=== PATIENT | female | born 1995 | race African-American/Black ===

== ENCOUNTER 2023-04-20 10:48 | Inpatient (IN) | payer MEDICARE ==
[~2023-04-20] VITALS: Ht 157.5 cm; Wt 62.0 kg
[2023-04-20] MEDS ORDERED: SODIUM CHLORIDE 0.9% 1,000 ML IV ONE (11:00)
[2023-04-20 11:28] LABS: COVID AG,FIA SOURCE NASAL SWAB
[2023-04-20 11:34] LABS: BASOPHILS % (AUTO) 0.3 % (0.0-2.0); EOSINOPHILS % (AUTO) 0 % (1.0-6.0); HEMATOCRIT 41.1 % (36-46); HEMOGLOBIN 13.7 g/dL (12.0-16.0); LYMPHOCYTES % (AUTO) 7.2 % (22.0-44.0); MEAN CORPUSCULAR HEMOGLOBIN 32.5 pg (26.0-34.0); MEAN CORPUSCULAR HGB CONC 33.4 G/dL (31.0-37.0); MEAN CORPUSCULAR VOLUME 97 fL (80-100); MONOCYTES # (AUTO) 0.2 K/uL (0.1-1.0); MONOCYTES % (AUTO) 1.4 % (2.0-9.0); NEUTROPHILS # (AUTO) 12.7 K/uL (1.8-7.7); PLATELET COUNT (AUTO) 351 K/uL (150-450); RED BLOOD CELL COUNT(AUTO) 4.22 MIL/uL (4.00-5.20); RED CELL DISTRIBUTION WIDTH 13.3 % (11.5-14.5); WHITE BLOOD COUNT (AUTO) 13.9 K/uL (4.5-11.0)
[2023-04-20 11:36] LABS: NEUTROPHILS % (AUTO) 91.1 % (40.0-70.0)
[2023-04-20 11:57] LABS: ALANINE AMINOTRANSFERASE 43 U/L (12-78); ALKALINE PHOSPHATASE 133 U/L (46-116); ANION GAP 27 mmol/L (8-16); ASPARTATE AMINOTRANSFERASE 45 U/L (15-37); BILIRUBIN,TOTAL 1.9 mg/dL (0.1-1.0); CALCIUM, TOTAL 10.6 mg/dL (8.8-10.5); CARBON DIOXIDE 14 mmol/L (22-29); CHLORIDE 99 mmol/L (98-107); CREATININE 1.27 mg/dL (0.60-1.30); GLOMERULAR FILTR. RATE CALC > 60 mL/min (>60); HCG,QUANTITATIVE < 1 mIU/mL (0-6); POTASSIUM 5.3 mmol/L (3.5-5.1); SODIUM SERUM 140 mmol/L (136-145); TOTAL PROTEIN, SERUM 8.6 g/dL (6.4-8.2); UREA NITROGEN, BLOOD 26 mg/dL (7-18)
[2023-04-20 12:01] LABS: SARS-COV2 (COVID) ANTIGEN,FIA Negative (Negative)
[2023-04-20 12:04] LABS: GLUCOSE,RANDOM 695 mg/dL (70-110)
[2023-04-20] MEDS ORDERED: ACETAMINOPHEN 1000 MG/ISO-OSM 100 ML IV ONE (12:15)
[2023-04-20] MEDS ORDERED: INSULIN REGULAR, HUMAN 100 UNITS/ML IVP PRN ×2 (12:15→14:15)
[2023-04-20] MEDS ORDERED: POTASSIUM CHLORIDE 40 MEQ in SODIUM CHLORIDE 0.45% 1,000 ML IV PRN ×2 (12:15→14:15)
[2023-04-20] MEDS ORDERED: DEXTROSE 50%-WATER 25 GM/50 ML SYRINGE IVP PRN ×2 (12:15→14:15)
[2023-04-20] MEDS ORDERED: DEXTROSE 5%-0.45% SODIUM CHL 1,000 ML IV PRN (12:15)
[2023-04-20] MEDS ORDERED: SODIUM CHLORIDE 0.45% 1,000 ML IV PRN ×2 (12:15→14:15)
[2023-04-20] MEDS ORDERED: INSULIN REGULAR, HUMAN 100 UNITS/ML IVP ONE ×2 (12:15→14:15)
[2023-04-20] MEDS ORDERED: POTASSIUM CHL 20 MEQ/0.45% NS 1,000 ML IV PRN ×2 (12:15→14:15)
[2023-04-20] MEDS ORDERED: SODIUM CHLORIDE 0.9% 1,000 ML IV SCH ×2 (12:15→14:15)
[2023-04-20] MEDS ORDERED: INSULIN REGULAR, HUMAN 100 UNITS in SODIUM CHLORIDE 0.9% 99 ML IV PRN ×4 (12:15→14:15)
[2023-04-20] MEDS ORDERED: ACETAMINOPHEN 325 MG TABLET PO PRN ×2 (12:30→14:15)
[2023-04-20] MEDS ORDERED: ONDANSETRON HCL 4 MG/2 ML VIAL IVP PRN (12:30)
[2023-04-20 13:12] LABS: APPEARANCE,URINE CLEAR (CLEAR); BILIRUBIN,URINE NEGATIVE (NEGATIVE); COLOR,URINE COLORLESS (YELLOW); GLUCOSE, URINE (UA) >=1000 mg/dL (NEGATIVE); KETONES,URINE =>150 mg/dL (NEGATIVE); LEUKOCYTE ESTERASE ,URINE NEGATIVE (NEGATIVE); NITRATE,URINE NEGATIVE (NEGATIVE); OCCULT BLOOD,URINE NEGATIVE (NEGATIVE); PH,URINE 5.5 (5.0-8.0); PROTEIN,URINE TRACE mg/dL (NEGATIVE); SPECIFIC GRAVITIY, URINE 1.028 (1.003-1.030); UROBILINOGEN,URINE <=1.0 mg/dL (<=1.0)
[2023-04-20 13:28] LABS: BACTERIA,URINE None Seen /HPF (None Seen); RBC,URINE None Seen /HPF (0-2); SQUAMOUS EPITHELIAL CELL,UR Rare /LPF (None Seen); WBC,URINE 0-2 /HPF (0-5)
[2023-04-20] MEDS ORDERED: MAGNESIUM HYDROXIDE SUSPENSION 30 ML UDCUP PO PRN (14:15)
[2023-04-20] MEDS ORDERED: BISACODYL 10 MG RECTAL RECTAL SUPPOSITORY PR PRN (14:15)
[2023-04-20] MEDS ORDERED: ZOLPIDEM TARTRATE 5 MG TABLET PO PRN (14:15)
[2023-04-20] MEDS: MORPHINE SULFATE 2 MG/ML SYRINGE IVP PRN ×2 (14:28→19:41)
[2023-04-20 15:15] LABS: GLUCOMETER DEV NAME(LOC) ERT.5; GLUCOSE,POINT OF CARE 410 MG/DL (70-110)
[2023-04-20 15:15] LABS: GLUCOMETER DEV NAME(LOC) ERT.5; GLUCOSE,POINT OF CARE 547 MG/DL (70-110)
[2023-04-20 15:41] LABS: CALCIUM, TOTAL 9.3 mg/dL (8.8-10.5); CREATININE 1.48 mg/dL (0.60-1.30); POTASSIUM 4.3 mmol/L (3.5-5.1)
[2023-04-20] MEDS: HEPARIN SODIUM,PORCINE 5,000 UNITS/ML VIAL SQ SCH (15:50)
[2023-04-20 16:11] LABS: GLUCOMETER DEV NAME(LOC) ERT.5; GLUCOSE,POINT OF CARE 279 MG/DL (70-110)
[2023-04-20] MEDS: DEXTROSE 5%-0.45% SODIUM CHL 1,000 ML IV PRN (17:09)
[2023-04-20] MEDS: HYDROCODONE/ACETAMINOPHEN 5-325 MG TABLET PO PRN (17:14)
[2023-04-20] MEDS: ONDANSETRON HCL 4 MG/2 ML VIAL IVP PRN (17:14)
[2023-04-20 17:21] LABS: GLUCOMETER DEV NAME(LOC) ERT.5; GLUCOSE,POINT OF CARE 213 MG/DL (70-110)
[2023-04-20 19:01] LABS: GLUCOMETER DEV NAME(LOC) ERT.5; GLUCOSE,POINT OF CARE 163 MG/DL (70-110)
[2023-04-20 19:01] LABS: GLUCOMETER DEV NAME(LOC) ERT.5; GLUCOSE,POINT OF CARE 138 MG/DL (70-110)
[2023-04-20 19:25] LABS: ANION GAP 17 mmol/L (8-16); CALCIUM, TOTAL 9.6 mg/dL (8.8-10.5); CARBON DIOXIDE 20 mmol/L (22-29); CHLORIDE 112 mmol/L (98-107); CREATININE 1.27 mg/dL (0.60-1.30); GLOMERULAR FILTR. RATE CALC > 60 mL/min (>60); GLUCOSE,RANDOM 178 mg/dL (70-110); SODIUM SERUM 149 mmol/L (136-145); UREA NITROGEN, BLOOD 22 mg/dL (7-18)
[2023-04-20 20:00] VITALS: BP 139/78; PULSE 133; RESP 16; TEMP 98.6
[2023-04-20 20:21] LABS: GLUCOSE,POINT OF CARE 87 MG/DL (70-110)
[2023-04-20] MEDS ORDERED: MORPHINE SULFATE 2 MG/ML SYRINGE IVP STA (20:31)
[2023-04-20] MEDS: DOCUSATE SODIUM 100 MG CAPSULE PO SCH (21:00)
[2023-04-20 21:41] LABS: GLUCOSE,POINT OF CARE 60 MG/DL (70-110)
[2023-04-20 22:25] LABS: GLUCOSE,POINT OF CARE 143 MG/DL (70-110)
[2023-04-20 23:26] LABS: GLUCOSE,POINT OF CARE 203 MG/DL (70-110)
[2023-04-20 23:44] LABS: ANION GAP 12 mmol/L (8-16); CALCIUM, TOTAL 8.7 mg/dL (8.8-10.5); CARBON DIOXIDE 22 mmol/L (22-29); CHLORIDE 112 mmol/L (98-107); CREATININE 0.95 mg/dL (0.60-1.30); GLOMERULAR FILTR. RATE CALC > 60 mL/min (>60); GLUCOSE,RANDOM 225 mg/dL (70-110); POTASSIUM 4.7 mmol/L (3.5-5.1); SODIUM SERUM 146 mmol/L (136-145); UREA NITROGEN, BLOOD 19 mg/dL (7-18)
[2023-04-21] VITALS (9 sets, daily range): BP systolic 98–145; BP diastolic 59–95; PULSE 82–133; RESP 16–22; TEMP 98.1–99.6
[2023-04-21 01:11] LABS: GLUCOSE,POINT OF CARE 198 MG/DL (70-110)
[2023-04-21] MEDS: HEPARIN SODIUM,PORCINE 5,000 UNITS/ML VIAL SQ SCH ×4 (01:18→23:43)
[2023-04-21 03:21] LABS: GLUCOSE,POINT OF CARE 72 MG/DL (70-110)
[2023-04-21 03:21] LABS: GLUCOSE,POINT OF CARE 97 MG/DL (70-110)
[2023-04-21 03:31] LABS: ANION GAP 12 mmol/L (8-16); CALCIUM, TOTAL 8.7 mg/dL (8.8-10.5); CARBON DIOXIDE 21 mmol/L (22-29); CHLORIDE 113 mmol/L (98-107); CREATININE 0.81 mg/dL (0.60-1.30); GLOMERULAR FILTR. RATE CALC > 60 mL/min (>60); GLUCOSE,RANDOM 71 mg/dL (70-110); POTASSIUM 3.9 mmol/L (3.5-5.1); SODIUM SERUM 146 mmol/L (136-145); UREA NITROGEN, BLOOD 17 mg/dL (7-18)
[2023-04-21 03:56] LABS: GLUCOSE,POINT OF CARE 72 MG/DL (70-110)
[2023-04-21] MEDS: DEXTROSE 5%-0.45% SODIUM CHL 1,000 ML IV PRN (04:31)
[2023-04-21 05:25] LABS: GLUCOSE,POINT OF CARE 107 MG/DL (70-110)
[2023-04-21 05:25] LABS: GLUCOSE,POINT OF CARE 127 MG/DL (70-110)
[2023-04-21 05:41] LABS: GLUCOSE,POINT OF CARE 136 MG/DL (70-110)
[2023-04-21] MEDS: MORPHINE SULFATE 2 MG/ML SYRINGE IVP PRN ×5 (05:59→23:43)
[2023-04-21 06:16] LABS: GLUCOSE,POINT OF CARE 77 MG/DL (70-110)
[2023-04-21 06:28] LABS: HEMATOCRIT 32.5 % (36-46); HEMOGLOBIN 11.2 g/dL (12.0-16.0); MEAN CORPUSCULAR HEMOGLOBIN 32.6 pg (26.0-34.0); MEAN CORPUSCULAR HGB CONC 34.4 G/dL (31.0-37.0); MEAN CORPUSCULAR VOLUME 95 fL (80-100); PLATELET COUNT (AUTO) 315 K/uL (150-450); RED BLOOD CELL COUNT(AUTO) 3.44 MIL/uL (4.00-5.20); RED CELL DISTRIBUTION WIDTH 13.4 % (11.5-14.5); WHITE BLOOD COUNT (AUTO) 17.8 K/uL (4.5-11.0)
[2023-04-21 06:56] LABS: ALANINE AMINOTRANSFERASE 29 U/L (12-78); ALBUMIN 2.8 g/dL (3.4-5.0); ALKALINE PHOSPHATASE 100 U/L (46-116); ANION GAP 13 mmol/L (8-16); ASPARTATE AMINOTRANSFERASE 17 U/L (15-37); BILIRUBIN,TOTAL 0.9 mg/dL (0.1-1.0); CALCIUM, TOTAL 8.4 mg/dL (8.8-10.5); CARBON DIOXIDE 19 mmol/L (22-29); CHLORIDE 113 mmol/L (98-107); CREATININE 0.79 mg/dL (0.60-1.30); GLOMERULAR FILTR. RATE CALC > 60 mL/min (>60); GLUCOSE,RANDOM 91 mg/dL (70-110); PHOSPHORUS 1.9 mg/dL (2.5-4.9); POTASSIUM 3.3 mmol/L (3.5-5.1); SODIUM SERUM 145 mmol/L (136-145); TOTAL PROTEIN, SERUM 6.4 g/dL (6.4-8.2); UREA NITROGEN, BLOOD 15 mg/dL (7-18)
[2023-04-21 07:15] LABS: GLUCOSE,POINT OF CARE 125 MG/DL (70-110)
[2023-04-21] MEDS: DOCUSATE SODIUM 100 MG CAPSULE PO SCH ×3 (08:11→21:25)
[2023-04-21] MEDS ORDERED: POTASSIUM CHLORIDE 20 MEQ ER TABLET PO PRN ×2 (08:30)
[2023-04-21] MEDS ORDERED: DEXTROSE 50%-WATER 25 GM/50 ML SYRINGE IVP PRN (08:30)
[2023-04-21] MEDS ORDERED: POTASSIUM CHL 10 MEQ/WATER 50 ML IV PRN (08:30)
[2023-04-21] MEDS: ONDANSETRON HCL 4 MG/2 ML VIAL IVP PRN ×3 (08:38→22:07)
[2023-04-21 08:39] LABS: BAND NEUTROPHILS % (MANUAL) 2 % (0-5); LYMPHOCYTES % (MANUAL) 19 % (22-44); MONOCYTES % (MANUAL) 5 % (2-9); SEGMENTED NEUTROPHILS % 74 % (40-70); TOTAL CELLS COUNTED 100
[2023-04-21] MEDS: SODIUM CHLORIDE 0.9% 1,000 ML IV SCH ×2 (08:39→20:11)
[2023-04-21] MEDS: PANTOPRAZOLE SODIUM 40 MG DR TABLET PO SCH (08:39)
[2023-04-21 08:40] LABS: RBC MORPHOLOGY COMMENT NORMAL RBC MORPH
[2023-04-21] MEDS: POTASSIUM CHL 10 MEQ/WATER 50 ML IV PRN (08:40)
[2023-04-21] MEDS ORDERED: INSULIN GLARGINE,HUM.REC.ANLOG 100 UNITS/ML SQ SCH (09:00)
[2023-04-21] MEDS: INSULIN LISPRO 100 UNITS/ML SQ PRN ×2 (09:15→17:29)
[2023-04-21] MEDS: METOCLOPRAMIDE HCL 5 MG/ML 2 ML VIAL IVP PRN ×2 (09:16→17:28)
[2023-04-21 09:46] LABS: ANION GAP 16 mmol/L (8-16); CALCIUM, TOTAL 8.9 mg/dL (8.8-10.5); CARBON DIOXIDE 17 mmol/L (22-29); CHLORIDE 109 mmol/L (98-107); CREATININE 0.84 mg/dL (0.60-1.30); GLOMERULAR FILTR. RATE CALC > 60 mL/min (>60); GLUCOSE,RANDOM 303 mg/dL (70-110); POTASSIUM 4.5 mmol/L (3.5-5.1); SODIUM SERUM 142 mmol/L (136-145); UREA NITROGEN, BLOOD 13 mg/dL (7-18)
[2023-04-21 11:41] LABS: GLUCOSE,POINT OF CARE 276 MG/DL (70-110)
[2023-04-21] MEDS ORDERED: PROMETHAZINE HCL 12.5 MG RECTAL SUPPOSITORY PR PRN (13:00)
[2023-04-21 13:32] LABS: GLUCOSE,POINT OF CARE 101 MG/DL (70-110)
[2023-04-21 15:41] LABS: GLUCOSE,POINT OF CARE 167 MG/DL (70-110)
[2023-04-21] MEDS: AMITRIPTYLINE HCL 50 MG TABLET PO SCH (21:00)
[2023-04-21] MEDS: PREGABALIN 75 MG CAPSULE PO SCH ×2 (21:00→21:25)
[2023-04-21] MEDS: INSULIN GLARGINE,HUM.REC.ANLOG 100 UNITS/ML SQ SCH (21:30)
[2023-04-22] VITALS (14 sets, daily range): BP systolic 121–153; BP diastolic 76–111; PULSE 100–150; RESP 20; TEMP 97.8–99.3
[2023-04-22 01:16] LABS: GLUCOMETER DEV NAME(LOC) 4E.2; GLUCOSE,POINT OF CARE 132 MG/DL (70-110)
[2023-04-22] MEDS: METOCLOPRAMIDE HCL 5 MG/ML 2 ML VIAL IVP PRN (03:39)
[2023-04-22] MEDS: MORPHINE SULFATE 2 MG/ML SYRINGE IVP PRN ×4 (03:39→23:20)
[2023-04-22] MEDS: INSULIN LISPRO 100 UNITS/ML SQ PRN (03:47)
[2023-04-22] MEDS ORDERED: MORPHINE SULFATE 2 MG/ML SYRINGE IVP ONE ×2 (04:00→19:45)
[2023-04-22 05:01] LABS: GLUCOMETER DEV NAME(LOC) 6N.2B; GLUCOSE,POINT OF CARE 330 MG/DL (70-110)
[2023-04-22] MEDS: SODIUM CHLORIDE 0.9% 1,000 ML IV SCH ×3 (05:37→21:05)
[2023-04-22] MEDS: HEPARIN SODIUM,PORCINE 5,000 UNITS/ML VIAL SQ SCH ×2 (08:26→16:29)
[2023-04-22 08:36] LABS: GLUCOMETER DEV NAME(LOC) 5N.1C; GLUCOSE,POINT OF CARE 106 MG/DL (70-110)
[2023-04-22] MEDS: PREGABALIN 75 MG CAPSULE PO SCH ×2 (08:40→21:00)
[2023-04-22] MEDS: DOCUSATE SODIUM 100 MG CAPSULE PO SCH ×2 (08:40→21:00)
[2023-04-22] MEDS: FLUoxetine HCL 20 MG CAPSULE PO SCH (08:41)
[2023-04-22] MEDS: PANTOPRAZOLE SODIUM 40 MG DR TABLET PO SCH (08:41)
[2023-04-22] MEDS: INSULIN GLARGINE,HUM.REC.ANLOG 100 UNITS/ML SQ SCH ×2 (08:46→21:00)
[2023-04-22 09:21] LABS: GLUCOMETER DEV NAME(LOC) 5N.1C; GLUCOSE,POINT OF CARE 132 MG/DL (70-110)
[2023-04-22] MEDS: ONDANSETRON HCL 4 MG/2 ML VIAL IVP PRN ×2 (12:10→21:15)
[2023-04-22 13:01] LABS: GLUCOMETER DEV NAME(LOC) 5N.1C; GLUCOSE,POINT OF CARE 139 MG/DL (70-110)
[2023-04-22] MEDS: PROMETHAZINE HCL 12.5 MG RECTAL SUPPOSITORY PR SCH (16:31)
[2023-04-22] MEDS: METOCLOPRAMIDE HCL 5 MG/ML 2 ML VIAL IVP SCH (17:07)
[2023-04-22] MEDS ORDERED: LABETALOL HCL 5 MG/ML 20 ML VIAL IVP ONE (18:30)
[2023-04-22] MEDS ORDERED: SODIUM CHLORIDE 0.9% 500 ML IV ONE (19:45)
[2023-04-22 20:54] LABS: TROPONIN I-HIGH SENSITIVITY 4 ng/L (<51)
[2023-04-22] MEDS: AMITRIPTYLINE HCL 50 MG TABLET PO SCH (21:00)
[2023-04-22 21:55] LABS: GLUCOMETER DEV NAME(LOC) 5S.2C; GLUCOSE,POINT OF CARE 187 MG/DL (70-110)
[2023-04-22 21:56] LABS: GLUCOMETER DEV NAME(LOC) 5S.2C; GLUCOSE,POINT OF CARE 172 MG/DL (70-110)
[2023-04-22] MEDS ORDERED: SODIUM CHLORIDE 0.9% 100 ML ONE (23:21)
[2023-04-22] MEDS ORDERED: IOHEXOL 350 MG/ML 100 ML VIAL ONE (23:21)
[2023-04-23] VITALS (10 sets, daily range): BP systolic 114–165; BP diastolic 64–103; PULSE 100–128; RESP 19–20; TEMP 97.7–98.7
[2023-04-23] MEDS: PROMETHAZINE HCL 12.5 MG RECTAL SUPPOSITORY PR SCH ×3 (00:16→16:00)
[2023-04-23] MEDS: HEPARIN SODIUM,PORCINE 5,000 UNITS/ML VIAL SQ SCH ×3 (00:17→16:06)
[2023-04-23] MEDS: METOCLOPRAMIDE HCL 5 MG/ML 2 ML VIAL IVP SCH ×3 (01:18→17:28)
[2023-04-23] MEDS: MORPHINE SULFATE 2 MG/ML SYRINGE IVP PRN (04:34)
[2023-04-23] MEDS: ONDANSETRON HCL 4 MG/2 ML VIAL IVP PRN (04:34)
[2023-04-23] MEDS: SODIUM CHLORIDE 0.9% 1,000 ML IV SCH ×2 (05:58→16:06)
[2023-04-23] MEDS: INSULIN GLARGINE,HUM.REC.ANLOG 100 UNITS/ML SQ SCH ×2 (09:12→20:53)
[2023-04-23] MEDS: PANTOPRAZOLE SODIUM 40 MG DR TABLET PO SCH (09:43)
[2023-04-23] MEDS: HYDROCODONE/ACETAMINOPHEN 5-325 MG TABLET PO PRN (09:47)
[2023-04-23] MEDS: PREGABALIN 75 MG CAPSULE PO SCH ×2 (10:36→20:42)
[2023-04-23] MEDS: DOCUSATE SODIUM 100 MG CAPSULE PO SCH ×2 (10:36→20:42)
[2023-04-23] MEDS: FLUoxetine HCL 20 MG CAPSULE PO SCH (10:36)
[2023-04-23] MEDS: INSULIN LISPRO 100 UNITS/ML SQ PRN (12:26)
[2023-04-23 17:11] LABS: GLUCOMETER DEV NAME(LOC) 5N.1C; GLUCOSE,POINT OF CARE 179 MG/DL (70-110)
[2023-04-23 17:52] LABS: GLUCOMETER DEV NAME(LOC) 5N.2C; GLUCOSE,POINT OF CARE 141 MG/DL (70-110)
[2023-04-23] MEDS: PANTOPRAZOLE SODIUM 40 MG/VIAL IVP SCH (20:42)
[2023-04-23] MEDS: AMITRIPTYLINE HCL 50 MG TABLET PO SCH (20:42)
[2023-04-23 21:27] LABS: GLUCOMETER DEV NAME(LOC) 5S.2C; GLUCOSE,POINT OF CARE 108 MG/DL (70-110)
[2023-04-24] VITALS (7 sets, daily range): BP systolic 122–164; BP diastolic 70–103; PULSE 100–119; RESP 18–19; TEMP 98–98.8
[2023-04-24] MEDS: SODIUM CHLORIDE 0.9% 1,000 ML IV SCH ×3 (00:11→20:55)
[2023-04-24] MEDS: METOCLOPRAMIDE HCL 5 MG/ML 2 ML VIAL IVP SCH ×3 (00:12→20:49)
[2023-04-24 03:02] LABS: GLUCOMETER DEV NAME(LOC) 5S.1B; GLUCOSE,POINT OF CARE 58 MG/DL (70-110)
[2023-04-24 03:02] LABS: GLUCOMETER DEV NAME(LOC) 5S.1B; GLUCOSE,POINT OF CARE 231 MG/DL (70-110)
[2023-04-24 07:16] LABS: GLUCOMETER DEV NAME(LOC) 5N.2C; GLUCOSE,POINT OF CARE 225 MG/DL (70-110)
[2023-04-24 07:16] LABS: GLUCOMETER DEV NAME(LOC) 5N.2C; GLUCOSE,POINT OF CARE 54 MG/DL (70-110)
[2023-04-24 08:06] LABS: BASOPHILS % (AUTO) 0.6 % (0.0-2.0); EOSINOPHILS % (AUTO) 1.6 % (1.0-6.0); HEMATOCRIT 32.5 % (36-46); HEMOGLOBIN 11.6 g/dL (12.0-16.0); LYMPHOCYTES # (AUTO) 2.8 K/uL (1.0-4.8); LYMPHOCYTES % (AUTO) 47.5 % (22.0-44.0); MEAN CORPUSCULAR HEMOGLOBIN 32.8 pg (26.0-34.0); MEAN CORPUSCULAR HGB CONC 35.6 G/dL (31.0-37.0); MEAN CORPUSCULAR VOLUME 92 fL (80-100); MONOCYTES # (AUTO) 0.4 K/uL (0.1-1.0); MONOCYTES % (AUTO) 6.7 % (2.0-9.0); NEUTROPHILS # (AUTO) 2.5 K/uL (1.8-7.7); NEUTROPHILS % (AUTO) 43.6 % (40.0-70.0); PLATELET COUNT (AUTO) 269 K/uL (150-450); RED BLOOD CELL COUNT(AUTO) 3.53 MIL/uL (4.00-5.20); WHITE BLOOD COUNT (AUTO) 5.8 K/uL (4.5-11.0)
[2023-04-24] MEDS: PREGABALIN 75 MG CAPSULE PO SCH (08:33)
[2023-04-24] MEDS: PANTOPRAZOLE SODIUM 40 MG/VIAL IVP SCH ×2 (08:33→23:06)
[2023-04-24] MEDS: FLUoxetine HCL 20 MG CAPSULE PO SCH (08:33)
[2023-04-24] MEDS: DOCUSATE SODIUM 100 MG CAPSULE PO SCH (08:34)
[2023-04-24] MEDS: HEPARIN SODIUM,PORCINE 5,000 UNITS/ML VIAL SQ SCH ×3 (08:35→16:46)
[2023-04-24] MEDS: PROMETHAZINE HCL 12.5 MG RECTAL SUPPOSITORY PR SCH ×2 (08:35)
[2023-04-24 08:36] LABS: ANION GAP 10 mmol/L (8-16); CARBON DIOXIDE 22 mmol/L (22-29); CHLORIDE 109 mmol/L (98-107); GLOMERULAR FILTR. RATE CALC > 60 mL/min (>60); GLUCOSE,RANDOM 203 mg/dL (70-110); SODIUM SERUM 141 mmol/L (136-145); UREA NITROGEN, BLOOD 2 mg/dL (7-18)
[2023-04-24 08:48] LABS: POTASSIUM 2.5 mmol/L (3.5-5.1)
[2023-04-24] MEDS: INSULIN GLARGINE,HUM.REC.ANLOG 100 UNITS/ML SQ SCH ×2 (09:00→21:00)
[2023-04-24] MEDS: POTASSIUM CHL 10 MEQ/WATER 50 ML IV PRN ×4 (09:50→15:11)
[2023-04-24] MEDS: ONDANSETRON HCL 4 MG/2 ML VIAL IVP PRN (11:10)
[2023-04-24] MEDS: MORPHINE SULFATE 2 MG/ML SYRINGE IVP PRN ×2 (11:21→21:46)
[2023-04-24] MEDS: ERYTHROMYCIN BASE 500 MG TABLET PO SCH ×2 (13:15→21:00)
[2023-04-24 17:56] LABS: GLUCOMETER DEV NAME(LOC) 5S.2C; GLUCOSE,POINT OF CARE 172 MG/DL (70-110)
[2023-04-24 20:26] LABS: GLUCOMETER DEV NAME(LOC) 5N.1C; GLUCOSE,POINT OF CARE 228 MG/DL (70-110)
[2023-04-24] MEDS: AMITRIPTYLINE HCL 50 MG TABLET PO SCH (21:00)
[2023-04-25] MEDS: PROMETHAZINE HCL 12.5 MG RECTAL SUPPOSITORY PR SCH ×2 (00:16→08:00)
[2023-04-25] MEDS: SODIUM CHLORIDE 0.9% 1,000 ML IV SCH ×2 (00:16→09:27)
[2023-04-25] MEDS: HEPARIN SODIUM,PORCINE 5,000 UNITS/ML VIAL SQ SCH ×2 (00:17→09:29)
[2023-04-25 00:56] LABS: GLUCOMETER DEV NAME(LOC) 5N.1C; GLUCOSE,POINT OF CARE 209 MG/DL (70-110)
[2023-04-25] MEDS: METOCLOPRAMIDE HCL 5 MG/ML 2 ML VIAL IVP SCH ×2 (01:48→09:30)
[2023-04-25 04:41] VITALS: BP 126/76; PULSE 107; RESP 19; TEMP 98.1
[2023-04-25] MEDS: INSULIN LISPRO 100 UNITS/ML SQ PRN ×2 (06:50→12:09)
[2023-04-25 07:06] LABS: BASOPHILS % (AUTO) 0.6 % (0.0-2.0); EOSINOPHILS % (AUTO) 1.2 % (1.0-6.0); HEMATOCRIT 28.8 % (36-46); HEMOGLOBIN 10.3 g/dL (12.0-16.0); LYMPHOCYTES # (AUTO) 3.3 K/uL (1.0-4.8); LYMPHOCYTES % (AUTO) 55.7 % (22.0-44.0); MEAN CORPUSCULAR HEMOGLOBIN 33.1 pg (26.0-34.0); MEAN CORPUSCULAR HGB CONC 35.9 G/dL (31.0-37.0); MEAN CORPUSCULAR VOLUME 92 fL (80-100); MONOCYTES # (AUTO) 0.4 K/uL (0.1-1.0); MONOCYTES % (AUTO) 6.1 % (2.0-9.0); NEUTROPHILS # (AUTO) 2.2 K/uL (1.8-7.7); NEUTROPHILS % (AUTO) 36.4 % (40.0-70.0); PLATELET COUNT (AUTO) 250 K/uL (150-450); RED BLOOD CELL COUNT(AUTO) 3.12 MIL/uL (4.00-5.20); RED CELL DISTRIBUTION WIDTH 12.6 % (11.5-14.5)
[2023-04-25 08:30] VITALS: BP 130/91; PULSE 110; RESP 20; TEMP 98.7
[2023-04-25] MEDS: PANTOPRAZOLE SODIUM 40 MG/VIAL IVP SCH (09:30)
[2023-04-25] MEDS: ERYTHROMYCIN BASE 500 MG TABLET PO SCH (09:30)
[2023-04-25] MEDS: PREGABALIN 75 MG CAPSULE PO SCH (09:33)
[2023-04-25] MEDS: INSULIN GLARGINE,HUM.REC.ANLOG 100 UNITS/ML SQ SCH (09:57)
[2023-04-25 12:00] VITALS: BP 126/80; PULSE 109; RESP 20; TEMP 97.6
[2023-04-25] MEDS ORDERED: PREG75 PO (13:31)
[2023-04-25] MEDS ORDERED: METO5TAB95 PO (13:31)
[2023-04-25] MEDS ORDERED: AMIT50TA3 PO (13:31)
[2023-04-25] MEDS ORDERED: PANT-31 PO (13:31)
[2023-04-25] MEDS ORDERED: FLUO20CA36 PO (13:31)
[2023-04-25] MEDS ORDERED: PROM12.511 PR (13:31)
[2023-04-25] MEDS ORDERED: ONDA-104 PO (13:31)
[2023-04-25] MEDS ORDERED: [UNRECOGNIZED DRUG - CODE] PO (13:31)
[2023-04-25 20:06] LABS: GLUCOMETER DEV NAME(LOC) 5N.1C; GLUCOSE,POINT OF CARE 165 MG/DL (70-110)
[2023-04-25 20:16] LABS: GLUCOMETER DEV NAME(LOC) 5S.1B; GLUCOSE,POINT OF CARE 373 MG/DL (70-110)
[2023-04-26 05:21] LABS: GLUCOMETER DEV NAME(LOC) 5N.2C; GLUCOSE,POINT OF CARE 216 MG/DL (70-110)
== END 2023-04-25 15:30 | disposition home or self-care (01) | DRG 74 ==
LOC: EMS 10:50 → ICU 19:20 → 6N 04-21 18:00 → 5S 04-22 04:10
PROVIDERS: ADMIT Internal Medicine; ATTEND Internal Medicine
DX: E11.43 Type 2 diabetes mellitus with diabetic autonomic (poly)neuropathy (principal); E11.10 Type 2 diabetes mellitus with ketoacidosis without coma; E87.5 Hyperkalemia; Z20.822 Contact with and (suspected) exposure to COVID-19; R79.89 Other specified abnormal findings of blood chemistry; F32.A Depression, unspecified; K31.84 Gastroparesis; E86.0 Dehydration; K20.90 Esophagitis, unspecified without bleeding; Z88.8 Allergy status to other drugs, medicaments and biological substances
CPT/HCPCS: 71045; 71260; 74177; 80048; 80053; 81001; 82009; 82962; 83735; 84100; 84132; 84484; 84702; 85007; 85025; 85027; 87081; 93005; 93306; 99291; C9113; G0378; J0131; J1644; J1815; J2270; J2405; J2765; J3480; J3490; J7030; J7050; Q9967; 36415-L1; 36415-TC